=== PATIENT | male | born 1995 | race Caucasian/White ===

== ENCOUNTER 2020-07-02 11:14 | Emergency (ER) | payer OTHER, SELFPAY ==
--- NOTE | 2020-07-02 11:15 | DI.CT_ITS ---
EXAM: CT HEAD WO CLINICAL HISTORY: trauma, pain. TECHNIQUE: Imaging Protocol: Axial computed tomography images with coronal and sagittal reformatted images were created and reviewed COMPARISON: No exams were available for comparison FINDINGS: Ventricles and Extra axial spaces: Normal in size and morphology for the patient's age. Hemorrhage: None. Cerebral parenchyma: Normal. Midline shift: None. Brainstem/Cerebellum: Normal. Calvarium: Normal. Visualized Paranasal sinuses/Mastoids: Clear. Soft Tissues: Mild soft tissue swelling of the scalp overlying the left frontal bone. No radiopaque foreign bodies are identified. IMPRESSION: 1. No acute intracranial process. 2. Mild soft tissue swelling of the scalp overlying the left frontal bone. No radiopaque foreign bod ies. 3. Findings were discussed with the emergency department on the date of the examination. RADIATION DOSE DELIVERED: 775.57mGy.cm Total DLP DATA REPOSITORY: All CT scans at this facility are submitted to the National Radiology Data Registry (NRDR) Dose Index Registry (DIR) with the [employer] ([employer]). RADIATION OPTIMIZATION: All CT scans at this facility use at least one of these dose optimization te chniques: automated exposure control; mA and/or kV adjustment per patient size (includes targeted exa ms where dose is matched to clinical indication); or iterative reconstruction.
[2020-07-02 11:21] VITALS: BP 157/87; PULSE 85; RESP 18; TEMP 36.3; O2SAT 98
--- NOTE | 2020-07-02 11:27 | ED.GENADUL_ITS ---
Discharge Plan Disposition Patient Disposition: HOME Condition: Stable Discharge Details Clinical Impression: Blunt head trauma ED Provider: Rosas Fu Home Meds and New Rx's Prescriptions: No Action No Known Home Meds RF: 0 Discharge Instructions Instructions: Laceration (ED) Additional Instructions: return in 7-10 days for evauation for suture removal your cat scan did not show any bleeding in the brain if you have spreading redness from the wound, severe worsening pain or persistent vomit return to the emergency department Medical Decision Making 25 yo male who denies chronic medical problems comes in with head injury. He was at work and about 10 minutes ago was using a sledgehammer on a piece of cast iron when the cast iron broke and hit him in the forehead. Denies falling or loc. Denies vomit, and has frontal head pain with 3cm hematoma on the mid forehead with an xshaped laceration in the middle of this abot 4cm total in length. no neck pain and has full rom without midline tenderness. No chest back or abdominal tenderness. Suspect likely superficial hematoma but given pain and mechanism will obtain ct head to evaluate for tbi ct head negative, sutures placed without complications. Advised to return in 7- 10 days for possible suture removal Differential Diagnosis Differential Diagnosis: laceration, tbi Imaging Data Radiologic Study: Attestation: I personally reviewed and interpreted this imaging study as follows: Imaging: CT Scan Radiologist's impression: no acute findings HPI General Mode of arrival: wheelchair . Date/Time Provider Initiated Documentation: 07/02/20 11:16 . Limitations to Documentation: no limitations . Information obtained by: patient . History of Present Illness 25 year old M presents to the emergency department with the chief complaint of head injury, described as moderate, Patient started experiencing this minute(s) (10) and it has been constant. No relieving factors improve symptom(s), No exacerbating factors reported . Patient notes no other symptoms.. Patient did receive the following treatments prior to arrival, none Related Data Home Medications Medication Instructions Recorded Confirmed Unknown [No Known Home Meds] 07/02/20 07/02/20 Allergies Allergy/AdvReac Type Severity Reaction Status Date / Time No Known Allergies Allergy Unverified 07/02/20 11:19 General Stated Complaint: HeadInjury MELISSA: 2 Review of Systems All systems reviewed & are unremarkable except as noted in HPI and below Constitutional Constitutional: Denies chills, Denies fever(s) and Denies weakness Cardiovascular Cardiovascular: Denies chest pain and Denies dyspnea Respiratory Respiratory: Denies cough and Denies dyspnea Gastrointestinal Gastrointestinal: Denies abdominal pain, Denies nausea and Denies vomiting Musculoskeletal Musculoskeletal: Denies joint swelling Neurologic Neurologic: Denies weakness PFSH Social History Smoking/Tobacco Use Status: Never Smoking risk assessment performed?: Yes Alcohol Intake: never Drug use: Never Do you feel safe at home: Yes Do you feel safe in your relationship?: Yes Exam Const General: no acute distress Orientation: alert HENMT Head: no palpable skull fracture Ears: external ears normal General nose exam: external nose normal Mouth: moist mucous membranes Eyes General: appearance normal, both eyes and all related structures Neck Neck: normal visual inspection Resp Effort & Inspection: normal respiratory effort and able to speak in complete sentences Cardio Rate: regular rate Skin General skin exam: no rashes or lesions noted Neuro General: patient alert and patient oriented x3 Extrem General: normal to inspection Psych Mental Status: mental status grossly normal Course Vital Signs Vital signs: Vital Signs Temperature 36.3 C L 07/02/20 11:21 Pulse 85 07/02/20 11:21 Respiratory Rate 18 07/02/20 11:21 Blood Pressure 157/87 H 07/02/20 11:21 Pulse Oximetry 98 07/02/20 11:21 Temperature 36.3 C L 07/02/20 11:21 Pulse 85 07/02/20 11:21 Respiratory Rate 18 07/02/20 11:21 Respiratory Effort Non-Labored 07/02/20 11:26 Respiratory Depth Normal 07/02/20 11:25 Respiratory Pattern Normal 07/02/20 11:25 Blood Pressure 157/87 H 07/02/20 11:21 Blood Pressure Position Supine 07/02/20 11:21 Pulse Oximetry 98 07/02/20 11:21 Oxygen Delivery Method Room Air 07/02/20 11:21 Oxygen Flow Rate 0 07/02/20 11:21 Pain Level 4 07/02/20 11:21 Procedures Laceration Laceration 1: Site: face Size (cm): 4 Description: irregular Depth: simple, single layer Local Anesthetic: Lidocaine 1% and with Epi Amount of anesthesia used (mL): 5 Pre-repair: wound explored and irrigated extensively Skin layer closed with: nylon Size (cm): 5-0 Number of sutures: 6 Technique: simple, interrupted
== END 2020-07-02 12:39 | disposition home or self-care (01) ==
LOC: ER 12:39
PROVIDERS: Emergency Provider Emergency Medicine
DX: S01.81XA Laceration without foreign body of other part of head, initial encounter (principal); W22.8XXA Striking against or struck by other objects, initial encounter; Y99.0 Civilian activity done for income or pay
CPT/HCPCS: 12013; 70450

== ENCOUNTER 2020-07-11 07:52 | Emergency (ER) | payer SELFPAY ==
[2020-07-11 08:08] VITALS: BP 135/65; PULSE 78; RESP 16; TEMP 36.8; O2SAT 99
--- NOTE | 2020-07-11 08:14 | W.ED.GENAD ---
Discharge Plan Disposition Patient Disposition: HOME Condition: Stable Discharge Details Clinical Impression: Encounter for removal of sutures Primary Care Provider: None,None ED Provider: Jaspreet Sanchez Home Meds and New Rx's Prescriptions: No Action No Known Home Meds RF: 0 Discharge Instructions Instructions: Stitches Removal (ED) Additional Instructions: Wound appears well-healing. Keep the area clean and dry, you may still apply antibiotic ointment. Avoid direct sunlight/sunburn, be sure to use sunblock. Watch for new or worsening symptoms and return to the ER for any concerns. Discharge Data Discharge Date/Time-TO BE ENTERED AT DEPARTURE: 07/11/20 08:27 Medical Decision Making Patient presents for suture removal. Has no concerns or complaints. Clinically appears well, no signs of secondary infection. Laceration appears well healed. 6 sutures were removed. No tenderness or bleeding. While removing the 6 suture, patient became diaphoretic. He tells me that this is very normal for him, he gets nervous in the hospital, or thinking about procedures or blood. This lasted for a very brief period of time. Patient was awake, alert, oriented x3. Asymptomatic and neurologically intact. Medical Records Medical records reviewed: Yes I reviewed the patient's medical records. HPI General Mode of arrival: ambulatory. Date/Time Provider Initiated Documentation: 07/11/20 08:00. Limitations to Documentation: no limitations. Information obtained by: patient. HPI Narrative: This is a 25-year-old male who presents for suture removal. He had sutures placed on 07-02-20. He has no concerns or complaints. He has taken care of the sutures. He denies any redness, discharge, pain or fevers. Denies global headache or visual changes. Related Data Home Medications Medication Instructions Recorded Confirmed Unknown [No Known Home Meds] 07/02/20 07/11/20 Allergies Allergy/AdvReac Type Severity Reaction Status Date / Time No Known Allergies Allergy Unverified 07/11/20 08:22 General Stated Complaint: Recheck MELISSA: 5 Review of Systems Constitutional Constitutional: Denies fever(s) and Denies headache(s) ENT Ears, Nose, Mouth, and Throat: Denies headache(s) Integumentary/Breasts Skin/Breast: Denies erythema Neurologic Neurologic: Denies headache(s) [facility] Social History Smoking/Tobacco Use Status: Never Smoking risk assessment performed?: Yes Alcohol Intake: never Drug use: Never Substance use type: does not use Do you feel safe at home: Yes Do you feel safe in your relationship?: Yes Exam Const General: cooperative, healthy appearing, comfortable and no acute distress Orientation: alert, awake and oriented x3 [facility] Head: normocephalic and atraumatic Head images: 1. Well-healing sutured laceration, [address] There is no warmth, erythema, tenderness, drainage. No signs of cellulitis. Eyes General: appearance normal, both eyes and all related structures Conjunctivae: conjunctivae normal Sclera: sclerae normal Neck Neck: normal visual inspection, full ROM, trachea midline and supple Resp Effort & Inspection: normal respiratory effort and able to speak in complete sentences Skin General skin exam: no rashes or lesions noted Neuro General: patient alert, patient awake, patient oriented x3, moves all extremities and no focal motor deficits Cognition: normal cognition Speech: speech normal Sensory Exam: no sensory deficits noted Psych Appearance: grossly normal Mental Status: mental status grossly normal Course Vital Signs Vital signs: Vital Signs Temperature 36.8 C 07/11/20 08:08 Pulse 78 07/11/20 08:08 Respiratory Rate 16 07/11/20 08:08 Blood Pressure 135/65 07/11/20 08:08 Pulse Oximetry 99 07/11/20 08:08 Temperature 36.8 C 07/11/20 08:08 Temperature Source Skin 07/11/20 08:08 Pulse 78 07/11/20 08:08 Respiratory Rate 16 07/11/20 08:08 Blood Pressure 135/65 07/11/20 08:08 Blood Pressure Position Sitting 07/11/20 08:08 Pulse Oximetry 99 07/11/20 08:08 Oxygen Delivery Method Room Air 07/11/20 08:08 Oxygen Flow Rate 0 07/11/20 08:08 Pain Level 0 07/11/20 08:08
== END 2020-07-11 08:27 | disposition home or self-care (01) ==
LOC: ER 08:24
PROVIDERS: Emergency Provider Physician Assistant
DX: S01.81XD Laceration without foreign body of other part of head, subsequent encounter (principal); W22.8XXD Striking against or struck by other objects, subsequent encounter; Z48.02 Encounter for removal of sutures